=== PATIENT | male | born 2000 | race Caucasian/White ===

== ENCOUNTER 2018-03-06 18:51 | Emergency (ER) | payer MEDICAID ==
[~2018-03-06] VITALS: Ht 172.7 cm; Wt 96.6 kg
[2018-03-06 19:09] VITALS: Ht 172.7 cm; Wt 96.6 kg
[2018-03-06 23:55] VITALS: BP 136/86
== END 2018-03-06 23:55 | disposition home or self-care (01) ==
LOC: ED 18:51
DX: S61.011A Laceration without foreign body of right thumb without damage to nail, initial encounter (principal); W45.8XXA Other foreign body or object entering through skin, initial encounter; Y93.89 Activity, other specified; Y92.89 Other specified places as the place of occurrence of the external cause; Y99.8 Other external cause status
CPT/HCPCS: 90715; A4570; J2001

== ENCOUNTER 2018-03-16 15:20 | Emergency (ER) | payer MEDICAID ==
[~2018-03-16] VITALS: Ht 177.8 cm; Wt 94.8 kg
[2018-03-16 15:57] VITALS: BP 131/86
== END 2018-03-16 15:57 | disposition home or self-care (01) ==
LOC: ED 15:20
DX: S61.011D Laceration without foreign body of right thumb without damage to nail, subsequent encounter (principal); X58.XXXD Exposure to other specified factors, subsequent encounter

== ENCOUNTER 2018-07-29 17:15 | Emergency (ER) | payer OTHER ==
[~2018-07-29] VITALS: Ht 177.8 cm; Wt 90.7 kg
[2018-07-29 17:21] VITALS: Ht 177.8 cm; Wt 90.7 kg
[2018-07-29 19:19] VITALS: BP 125/80
== END 2018-07-29 19:19 | disposition home or self-care (01) ==
LOC: ED 17:15
DX: S02.651A Fracture of angle of right mandible, initial encounter for closed fracture (principal); Y04.2XXA Assault by strike against or bumped into by another person, initial encounter; Y93.89 Activity, other specified; Y92.89 Other specified places as the place of occurrence of the external cause; Y99.8 Other external cause status

== ENCOUNTER 2019-05-09 13:20 | Emergency (ER) | payer OTHER ==
[~2019-05-09] VITALS: Ht 175.3 cm; Wt 102.5 kg
[2019-05-09 13:57] VITALS: Ht 175.3 cm; Wt 102.5 kg
[2019-05-09 15:41] VITALS: BP 155/71
== END 2019-05-09 15:41 | disposition home or self-care (01) ==
LOC: ED 13:20
DX: J40 Bronchitis, not specified as acute or chronic (principal)

== ENCOUNTER 2019-11-12 13:49 | Emergency (ER) | payer OTHER ==
[~2019-11-12] VITALS: Ht 180.3 cm; Wt 105.2 kg
[2019-11-12 13:53] VITALS: Ht 180.3 cm; Wt 105.2 kg
[2019-11-12 15:30] VITALS: BP 120/74
== END 2019-11-12 15:30 | disposition home or self-care (01) ==
LOC: ED 13:49
DX: M54.42 Lumbago with sciatica, left side (principal)

== ENCOUNTER 2020-02-16 16:46 | Emergency (ER) | payer OTHER ==
[~2020-02-16] VITALS: Ht 180.3 cm; Wt 93.0 kg
[2020-02-16 17:37] VITALS: Ht 180.3 cm; Wt 93.0 kg
[2020-02-16 19:07] VITALS: BP 151/82
== END 2020-02-16 18:56 | disposition home or self-care (01) ==
LOC: ED 16:46
DX: S39.012A Strain of muscle, fascia and tendon of lower back, initial encounter (principal); M54.16 Radiculopathy, lumbar region; X58.XXXA Exposure to other specified factors, initial encounter; Y93.89 Activity, other specified; Y92.89 Other specified places as the place of occurrence of the external cause; Y99.8 Other external cause status